=== PATIENT | female | born 1970 | race Caucasian/White ===

== ENCOUNTER 2018-11-09 13:09 | Emergency (ER) | payer MEDICARE, SELFPAY ==
[2018-11-09 13:19] VITALS: BP 123/77; PULSE 98; RESP 18; TEMP 36.7; O2SAT 99; BMI 30.7
--- NOTE | 2018-11-09 13:30 | ED.FEMALEGU ---
HPI - Female Genitourinary <Valarie Winslow PA-C - Last Filed: 11/09/18 19:31> General Chief complaint: Urogenital-Female Stated complaint: lower back pain/hematuria/urgency Time Seen by Provider: 11/09/18 13:30 Source: patient Mode of arrival: ambulatory Limitations: no limitations History of Present Illness HPI Narrative: This 47-year-old female comes to ED due to left flank pain and suspicion of recurrent kidney stone. She has had these multiple times in the past, twice requiring surgical extraction. She states that this severe pain started today, which she describes as ?waves of agony? that radiate from the flank down into the groin and urethra. She states that pain does ease up in between episodes. She states that she has an stream dysuria and hematuria today. No frequency or urgency. She denies any new fever. She denies any vomiting, states she has some nausea with pain waves. She denies any other new symptoms such as rash, chest pain, dyspnea. She has chronic back pain that is unchanged. She states that she has had some urinary discomfort for the last 2 or 3 weeks with some mild hematuria but worse today. Related Data Home Medications Medication Instructions Recorded Confirmed levothyroxine [Levoxyl] #0 12/17/15 metoprolol tartrate #0 12/17/15 Previous Rx's Medication Instructions Recorded hydrocodone-acetaminophen 0 tab PO Q6HP PRN #15 tab 12/17/15 ibuprofen 600 mg PO Q8HP PRN #20 tab 12/17/15 ondansetron [Zofran ODT] 4 mg SUBLINGUAL Q6HP PRN #20 odt 12/17/15 ciprofloxacin HCl [Cipro] 500 mg PO Q12H #14 tab 11/09/18 ondansetron 4 mg PO TID PRN #8 tab 11/09/18 oxycodone-acetaminophen 1 tab PO Q4H PRN #12 tab 11/09/18 tamsulosin [Flomax] 0.4 mg PO DAILY #5 cap 11/09/18 Allergies Allergy/AdvReac Type Severity Reaction Status Date / Time No Known Drug Allergies Allergy Verified 11/09/18 13:51 Review of Systems <Valarie Winslow PA-C - Last Filed: 11/09/18 19:31> Review of Systems ROS Unobtainable: All systems reviewed & are unremarkable except as noted in HPI and below PFSH <Valarie Winslow PA-C - Last Filed: 11/09/18 19:31> Medical History (Updated 11/09/18 @ 16:21 by Valarie Winslow PA-C) History of kidney stones (Resolved) Hypothyroidism (Chronic) Chronic back pain (Chronic) HTN (hypertension) (Chronic) Surgical History (Updated 11/09/18 @ 13:45 by Valarie Winslow PA-C) Status post knee surgery (Resolved) History of extraction of renal calculus (Resolved) Status post appendectomy (Resolved) Status post hysterectomy (Resolved) Social History Smoking Status: Current every day smoker Social History Smoking Status: Current every day smoker Exam <Valarie Winslow PA-C - Last Filed: 11/09/18 19:31> Narrative Exam Narrative: GENERAL APPEARANCE: Patient sitting, appears uncomfortable intermittently, in NAD LUNGS: Clear to auscultation bilaterally. HEART: Rate and rhythm regular without murmur, normal S1 and S2, no S3 or S4. ABDOMEN: Soft, ND, +BS x 4 quadrants, moderate left CVAT, and left suprapubic pain, no tenderness elsewhere, no palpable masses DERMATOLOGIC: No exanthem NEUROLOGIC: Alert, oriented, normal speech and coordination EXTREMITIES: No edema Initial Vital Signs Initial Vital Signs: Vital Signs Temperature 98.0 F 11/09/18 13:19 Pulse Rate 98 H 11/09/18 13:19 Respiratory Rate 18 11/09/18 13:19 Blood Pressure 123/77 11/09/18 13:19 Pulse Oximetry 99 11/09/18 13:19 <Cecilia Perez DO - Last Filed: 11/12/18 09:05> Initial Vital Signs Initial Vital Signs: Vital Signs Temperature 98.0 F 11/09/18 13:19 Pulse Rate 98 H 11/09/18 13:19 Respiratory Rate 18 11/09/18 13:19 Blood Pressure 123/77 11/09/18 13:19 Pulse Oximetry 99 11/09/18 13:19 Course <Valarie Winslow PA-C - Last Filed: 11/09/18 19:31> Additional Information: Patient thought symptoms were same as her previous kidney stones. She is tolerating oral medication, feeling better after medications here. She does think she will be able to manage treatment at home. She has had some ongoing urinary symptoms, will treat for UTI versus pyelo as well as stone. She did have a new sexual partner after onset of symptoms and she elected to pursue STD testing with her PCP at follow-up. She agreed to return if any acutely worsening symptoms in the interim or not able to tolerate oral medications. Orders Ordered: Discontinued Medications Ketorolac Tromethamine (Toradol) 30 mg IV NOW ONE Stop: 11/09/18 13:41 Last Admin: 11/09/18 13:52 Dose: 30 mg Ondansetron HCl (Zofran) 4 mg IV NOW ONE Stop: 11/09/18 13:41 Last Admin: 11/09/18 13:52 Dose: 4 mg Oxycodone/Acetaminophen (Percocet 5/325) 2 tab PO NOW ONE Stop: 11/09/18 15:17 Last Admin: 11/09/18 15:22 Dose: 2 tab Vital Signs - 8 hr 11/09/18 13:19 11/09/18 14:30 11/09/18 15:25 Temperature 98.0 F Pulse Rate 98 H 95 H 62 Respiratory Rate 18 15 Blood Pressure 123/77 Blood Pressure [Left Arm] 118/76 106/67 Pulse Oximetry 99 94 98 11/09/18 16:29 Temperature Pulse Rate 77 Respiratory Rate 16 Blood Pressure 144/70 H Blood Pressure [Left Arm] Pulse Oximetry 93 <Cecilia Perez DO - Last Filed: 11/12/18 09:05> Orders Ordered: Discontinued Medications Ketorolac Tromethamine (Toradol) 30 mg IV NOW ONE Stop: 11/09/18 13:41 Last Admin: 11/09/18 13:52 Dose: 30 mg Ondansetron HCl (Zofran) 4 mg IV NOW ONE Stop: 11/09/18 13:41 Last Admin: 11/09/18 13:52 Dose: 4 mg Oxycodone/Acetaminophen (Percocet 5/325) 2 tab PO NOW ONE Stop: 11/09/18 15:17 Last Admin: 11/09/18 15:22 Dose: 2 tab Vital Signs - 8 hr 11/09/18 13:19 11/09/18 14:30 11/09/18 15:25 Temperature 98.0 F Pulse Rate 98 H 95 H 62 Respiratory Rate 18 15 Blood Pressure 123/77 Blood Pressure [Left Arm] 118/76 106/67 Pulse Oximetry 99 94 98 11/09/18 16:29 Temperature Pulse Rate 77 Respiratory Rate 16 Blood Pressure 144/70 H Blood Pressure [Left Arm] Pulse Oximetry 93 MDM - Female Genitourinary <Valarie Winslow PA-C - Last Filed: 11/09/18 19:31> Lab Data Result diagrams: 11/09/18 13:45 11/09/18 13:45 Lab Results 11/09/18 11/09/18 11/09/18 Range/Units 13:20 13:45 13:45 WBC 14.6 H (4.5-11.0) X10^3/uL RBC 4.26 (4.0-5.2) X10^6/uL Hgb 12.9 (12.0-16.0) g/dL Hct 38.4 (36-46) % MCV 90.0 (80-100) fL MCH 30.2 (26-34) PG MCHC 33.6 (30-36) % RDW 13.8 (11.6-14.8) % Plt Count 358 (150-400) X10^3/uL Neut % (Auto) 71.7 (50-75) % Lymph % (Auto) 18.9 L (25-40) % [place] % (Auto) 6.2 (3-14) % Eos % (Auto) 1.9 L (2-4) % Baso % (Auto) 1.3 (0-2) % Neut # (Auto) 19524 H (7291-2409) /uL Lymph # (Auto) 2800 (6384-6025) /uL [place] # (Auto) 900 (0-900) /uL Eos # (Auto) 300 (0-450) /uL Baso # (Auto) 200 H (0-100) /uL Sodium 139 (137-145) mmol/L Potassium 3.7 (3.4-5.1) mmol/L Chloride 104 (98-107) mmol/L Carbon Dioxide 28 (22-32) mmol/L BUN 14 (7-17) mg/dL Creatinine 0.80 (0.52-1.04) mg/dL Estimated GFR > 60.0 (>60) mL/min BUN/Creatinine Ratio 17.5 (6-22) Glucose 105 H (70-100) mg/dL Calcium 9.4 (8.4-10.2) mg/dL Total Bilirubin 0.4 (0.2-1.3) mg/dL AST 72 H (14-36) IU/L ALT 146 H (9-52) IU/L Alkaline Phosphatase 140 H (38-126) U/L Total Protein 7.0 (6.3-8.2) g/dL Albumin 4.0 (3.5-5.0) g/dL Globulin 3.0 (1.7-4.1) g/dL Albumin/Globulin Ratio 1.3 (1.0-2.8) Urine RBC 5-10/hpf H (0-5/HPF) Urine WBC 30-100/hpf H (0-5/HPF) Ur Squamous Epith Cells 0-1 /hpf (0-5/HPF) Urine Bacteria Few (2-10) H (None) Ur Culture Indicated? Specimen cultured Ur Chlamydia DNA (PCR) N gonorrhoeae DNA (PCR) 11/09/18 Range/Units 15:45 WBC (4.5-11.0) X10^3/uL RBC (4.0-5.2) X10^6/uL Hgb (12.0-16.0) g/dL Hct (36-46) % MCV (80-100) fL MCH (26-34) PG MCHC (30-36) % RDW (11.6-14.8) % Plt Count (150-400) X10^3/uL Neut % (Auto) (50-75) % Lymph % (Auto) (25-40) % [place] % (Auto) (3-14) % Eos % (Auto) (2-4) % Baso % (Auto) (0-2) % Neut # (Auto) (1731-8123) /uL Lymph # (Auto) (0691-3697) /uL [place] # (Auto) (0-900) /uL Eos # (Auto) (0-450) /uL Baso # (Auto) (0-100) /uL Sodium (137-145) mmol/L Potassium (3.4-5.1) mmol/L Chloride (98-107) mmol/L Carbon Dioxide (22-32) mmol/L BUN (7-17) mg/dL Creatinine (0.52-1.04) mg/dL Estimated GFR (>60) mL/min BUN/Creatinine Ratio (6-22) Glucose (70-100) mg/dL Calcium (8.4-10.2) mg/dL Total Bilirubin (0.2-1.3) mg/dL AST (14-36) IU/L ALT (9-52) IU/L Alkaline Phosphatase (38-126) U/L Total Protein (6.3-8.2) g/dL Albumin (3.5-5.0) g/dL Globulin (1.7-4.1) g/dL Albumin/Globulin Ratio (1.0-2.8) Urine RBC (0-5/HPF) Urine WBC (0-5/HPF) Ur Squamous Epith Cells (0-5/HPF) Urine Bacteria (None) Ur Culture Indicated? Ur Chlamydia DNA (PCR) Not detected N gonorrhoeae DNA (PCR) Not detected Urine Dip Bedside Urine Glucose Negative Bedside Urine Bilirubin + 1 Bedside Urine Ketone +/- 5 Urine Specific [place] 1.020 Bedside Urine Occult Blood ++ Bedside Urine pH 6.0 Bedside Urine Protein ++ 100 Bedside Urine Urobilinogen - Negative Bedside Urine Nitrite - Negative Bedside Urine Leukocytes ++ 125 Esterase <Cecilia Perez, DO - Last Filed: 11/12/18 09:05> Lab Data Lab Results 11/09/18 11/09/18 11/09/18 Range/Units 13:20 13:45 13:45 WBC 14.6 H (4.5-11.0) X10^3/uL RBC 4.26 (4.0-5.2) X10^6/uL Hgb 12.9 (12.0-16.0) g/dL Hct 38.4 (36-46) % MCV 90.0 (80-100) fL MCH 30.2 (26-34) PG MCHC 33.6 (30-36) % RDW 13.8 (11.6-14.8) % Plt Count 358 (150-400) X10^3/uL Neut % (Auto) 71.7 (50-75) % Lymph % (Auto) 18.9 L (25-40) % [place] % (Auto) 6.2 (3-14) % Eos % (Auto) 1.9 L (2-4) % Baso % (Auto) 1.3 (0-2) % Neut # (Auto) 34091 H (6511-8343) /uL Lymph # (Auto) 2800 (7084-7431) /uL [place] # (Auto) 900 (0-900) /uL Eos # (Auto) 300 (0-450) /uL Baso # (Auto) 200 H (0-100) /uL Sodium 139 (137-145) mmol/L Potassium 3.7 (3.4-5.1) mmol/L Chloride 104 (98-107) mmol/L Carbon Dioxide 28 (22-32) mmol/L BUN 14 (7-17) mg/dL Creatinine 0.80 (0.52-1.04) mg/dL Estimated GFR > 60.0 (>60) mL/min BUN/Creatinine Ratio 17.5 (6-22) Glucose 105 H (70-100) mg/dL Calcium 9.4 (8.4-10.2) mg/dL Total Bilirubin 0.4 (0.2-1.3) mg/dL AST 72 H (14-36) IU/L ALT 146 H (9-52) IU/L Alkaline Phosphatase 140 H (38-126) U/L Total Protein 7.0 (6.3-8.2) g/dL Albumin 4.0 (3.5-5.0) g/dL Globulin 3.0 (1.7-4.1) g/dL Albumin/Globulin Ratio 1.3 (1.0-2.8) Urine RBC 5-10/hpf H (0-5/HPF) Urine WBC 30-100/hpf H (0-5/HPF) Ur Squamous Epith Cells 0-1 /hpf (0-5/HPF) Urine Bacteria Few (2-10) H (None) Ur Culture Indicated? Specimen cultured Ur Chlamydia DNA (PCR) N gonorrhoeae DNA (PCR) 11/09/18 Range/Units 15:45 WBC (4.5-11.0) X10^3/uL RBC (4.0-5.2) X10^6/uL Hgb (12.0-16.0) g/dL Hct (36-46) % MCV (80-100) fL MCH (26-34) PG MCHC (30-36) % RDW (11.6-14.8) % Plt Count (150-400) X10^3/uL Neut % (Auto) (50-75) % Lymph % (Auto) (25-40) % [place] % (Auto) (3-14) % Eos % (Auto) (2-4) % Baso % (Auto) (0-2) % Neut # (Auto) (3868-8916) /uL Lymph # (Auto) (1482-6131) /uL [place] # (Auto) (0-900) /uL Eos # (Auto) (0-450) /uL Baso # (Auto) (0-100) /uL Sodium (137-145) mmol/L Potassium (3.4-5.1) mmol/L Chloride (98-107) mmol/L Carbon Dioxide (22-32) mmol/L BUN (7-17) mg/dL Creatinine (0.52-1.04) mg/dL Estimated GFR (>60) mL/min BUN/Creatinine Ratio (6-22) Glucose (70-100) mg/dL Calcium (8.4-10.2) mg/dL Total Bilirubin (0.2-1.3) mg/dL AST (14-36) IU/L ALT (9-52) IU/L Alkaline Phosphatase (38-126) U/L Total Protein (6.3-8.2) g/dL Albumin (3.5-5.0) g/dL Globulin (1.7-4.1) g/dL Albumin/Globulin Ratio (1.0-2.8) Urine RBC (0-5/HPF) Urine WBC (0-5/HPF) Ur Squamous Epith Cells (0-5/HPF) Urine Bacteria (None) Ur Culture Indicated? Ur Chlamydia DNA (PCR) Not detected N gonorrhoeae DNA (PCR) Not detected Urine Dip Bedside Urine Glucose Negative Bedside Urine Bilirubin + 1 Bedside Urine Ketone +/- 5 Urine Specific [place] 1.020 Bedside Urine Occult Blood ++ Bedside Urine pH 6.0 Bedside Urine Protein ++ 100 Bedside Urine Urobilinogen - Negative Bedside Urine Nitrite - Negative Bedside Urine Leukocytes ++ 125 Esterase Discharge Plan Departure Patient Disposition: Home Clinical Impression: Kidney stone on right side Urinary tract infection Qualifiers: Urinary tract infection type: site unspecified Hematuria presence: with hematuria Qualified Code(s): N39.0 - Urinary tract infection, site not specified Discharge Date/Time: 11/09/18 16:30 Interventions: ED Discharge Assessment Last Done: 11/09/18 16:29 Instructions: DI for Kidney Stones, DI for Urinary Tract Infection (UTI) Activity Restrictions/Additional Instructions: There is a little bit of bacteria in your urine today, in addition to it looking like there is a small stone (not obstructing) on your CT scan, so I have sent in an antibiotic for you to start as well as nausea medicine and Flomax like you have taken before. Have also given you a prescription for some oxycodone/acetaminophen to take as needed for pain. Remember that this can make you sleepy and not to drive. It is not clear whether the infection is in your kidney versus bladder back today so I have given you the higher dose of antibiotic to cover for kidney infection. As we talked about, it is important that you follow-up with your PCP in the next 2-3 days to assess your progress, and determine whether further treatment or referral are needed, and whether you want to test for STDs. You should also return to the ED over the weekend if you have any acutely worsening symptoms, or new symptoms such as fever or protracted vomiting. I have sent your prescriptions to [facility] in [place]. Prescriptions: New ciprofloxacin HCl [Cipro] 500 mg tablet 500 mg PO Q12H Qty: 14 RF: 0 tamsulosin [Flomax] 0.4 mg capsule 0.4 mg PO DAILY Qty: 5 RF: 0 ondansetron 4 mg tablet,disintegrating 4 mg PO TID PRN (Reason: nausea and vomiting) Qty: 8 RF: 0 oxycodone-acetaminophen 5-325 mg tablet 1 tab PO Q4H PRN (Reason: kidney stone pain) Qty: 12 RF: 0 No Action levothyroxine [Levoxyl] 25 mcg tablet Qty: 0 RF: 0 metoprolol tartrate 25 mg tablet Qty: 0 RF: 0 hydrocodone-acetaminophen 5 MG/325 MG tablet PO Q6HP PRNQty: 15 RF: 0 ibuprofen 600 MG tablet 600 mg PO Q8HP PRNQty: 20 RF: 0 ondansetron [Zofran ODT] 4 MG tablet,disintegrating 4 mg Sublingual Q6HP PRNQty: 20 RF: 0 Referrals: Edward HARTLEY [Other] <Cecilia Perez DO - Last Filed: 11/12/18 09:05> Cosign ED Attending Cosignature Attestation: I was immediately available in the department for consultation. This documentation has been reviewed and I agree with assessment and plan. Supervised by Cecilia Perez DO
--- NOTE | 2018-11-09 13:40 | DI.CT.S_ITS ---
PROCEDURE: CT KIDNEY URETER BLADDER (KUB) INDICATIONS: L. flank/groin pain, h/o obstr. stones TECHNIQUE: Noncontrast 5 mm thick sections acquired from the diaphragms to the symphysis. 5 mm thick coronal and sagittal reformats were then performed. For radiation dose reduction, the following was used: automated exposure control, adjustment of mA and/or kV according to patient size. COMPARISON: [facility], CT, KIDNEY/ URETER/BLADDER, 12/17/2015, 14:23. FINDINGS: Image quality: Excellent. Lung bases: Lung bases are clear. Heart size is normal. Urinary system: Both kidneys are normal in size. Subtle hyperdensity within the upper pole the right kidney may represent a nonobstructing calculus. No hydronephrosis or perinephric fat stranding. Both ureters appear non-dilated throughout their expected courses. Bladder wall thickness is normal; no calcified bladder stones. Other solid organs: Liver is normal in size. Gallbladder is surgically absent. Pancreas is normal in contours. Spleen is normal in size. No adrenal nodules. Peritoneum and bowel: Unenhanced bowel loops demonstrate normal wall thickness and caliber. The appendix is not visualized; however there is no discrete right lower quadrant fluid or fat stranding to suggest acute appendicitis. No free fluid or air. Nodes and vessels: No retroperitoneal or mesenteric adenopathy by size criteria. Aorta and inferior vena cava are normal in caliber. There are scattered atheromatous calcifications throughout the aorta and iliac arteries bilaterally. Abdominal wall: No ventral hernias. The uterus and ovaries are nonvisualized and may be surgically absent. Pelvis: No free pelvic fluid. No inguinal hernias or adenopathy. Bones: No suspicious bony lesions. No vertebral body compression fractures. IMPRESSION: 1. Nonobstructing right nephrolithiasis. No hydronephrosis, hydroureter, or ureterolithiasis. 2. No acute intra-abdominal findings. The appendix is not visualized; however there are no ancillary findings to suggest acute appendicitis. Dictated by: Kari Barba M.D. on 11/09/2018 at 14:03 Approved by: Kari Braba M.D. on 11/09/2018 at 14:09
[2018-11-09 13:45] LABS: Bacteria Urine Few (2-10); Culture Indicated Urine Specimen Cultured; RBC Urine 5-10/HPF (0-5/HPF); Squamous Epithelial Cell Urine 0-1 /HPF (0-5/HPF); WBC Urine 30-100/HPF (0-5/HPF)
--- NOTE | 2018-11-09 13:46 | ED_ITS ---
HPI - Female Genitourinary <Valarie Winslow PA-C - Last Filed: 11/09/18 19:31> General Chief complaint: Urogenital-Female Stated complaint: lower back pain/hematuria/urgency Time Seen by Provider: 11/09/18 13:30 Source: patient Mode of arrival: ambulatory Limitations: no limitations History of Present Illness HPI Narrative: This 47-year-old female comes to ED due to left flank pain and piedra spicion of recurrent kidney stone. She has had these multiple times in the past, twice requiring surgical extraction. She states that this severe pain started today, which she describes as ?waves of agony? that radiate from the flank down into the groin and urethra. She states that pain does ease up in between episodes. She states that she has an stream dysuria and hematuria today. No frequency or urgency. She denies any new fever. She denies any vomiting, states she has some nausea with pain waves. She denies any other new symptoms such as rash, chest pain, dyspnea. She has chronic back pain that is unchanged. She states that she has had some urinary discomfort for the last 2 or 3 weeks with some mild hematuria but worse today. Related Data Home Medications Medication Instructions Recorded Confirmed levothyroxine [Levoxyl] #0 12/17/15 metoprolol tartrate #0 12/17/15 Previous Rx's Medication Instructions Recorded hydrocodone-acetaminophen 0 tab PO Q6HP PRN #15 tab 12/17/15 ibuprofen 600 mg PO Q8HP PRN #20 tab 12/17/15 ondansetron [Zofran ODT] 4 mg SUBLINGUAL Q6HP PRN #20 odt 12/17/15 ciprofloxacin HCl [Cipro] 500 mg PO Q12H #14 tab 11/09/18 ondansetron 4 mg PO TID PRN #8 tab 11/09/18 oxycodone-acetaminophen 1 tab PO Q4H PRN #12 tab 11/09/18 tamsulosin [Flomax] 0.4 mg PO DAILY #5 cap 11/09/18 Allergies Allergy/AdvReac Type Severity Reaction Status Date / Time No Known Drug Allergies Allergy Verified 11/09/18 13:51 Review of Systems <Valarie Winslow PA-C - Last Filed: 11/09/18 19:31> Review of Systems ROS Unobtainable: All systems reviewed & are unremarkable except as noted in HPI and below PFSH <Valarie Winslow PA-C - Last Filed: 11/09/18 19:31> Medical History (Updated 11/09/18 @ 16:21 by Valarie Winslow PA-C) History of kidney stones (Resolved) Hypothyroidism (Chronic) Chronic back pain (Chronic) HTN (hypertension) (Chronic) Surgical History (Updated 11/09/18 @ 13:45 by Valarie Winslow PA-C) Status post knee surgery (Resolved) History of extraction of renal calculus (Resolved) Status post appendectomy (Resolved) Status post hysterectomy (Resolved) Social History Smoking Status: Current every day smoker Social History Smoking Status: Current every day smoker Exam <Valarie Winslow PA-C - Last Filed: 11/09/18 19:31> Narrative Exam Narrative: GENERAL APPEARANCE: Patient sitting, appears uncomfortable intermittently, in NAD LUNGS: Clear to auscultation bilaterally. HEART: Rate and rhythm regular without murmur, normal S1 and S2, no S3 or S4. ABDOMEN: Soft, ND, +BS x 4 quadrants, moderate left CVAT, and left suprapubic pain, no tenderness elsewhere, no palpable masses DERMATOLOGIC: No exanthem NEUROLOGIC: Alert, oriented, normal speech and coordination EXTREMITIES: No edema Initial Vital Signs Initial Vital Signs: Vital Signs Temperature 98.0 F 11/09/18 13:19 Pulse Rate 98 H 11/09/18 13:19 Respiratory Rate 18 11/09/18 13:19 Blood Pressure 123/77 11/09/18 13:19 Pulse Oximetry 99 11/09/18 13:19 <Cecilia Perez DO - Last Filed: 11/12/18 09:05> Initial Vital Signs Initial Vital Signs: Vital Signs Temperature 98.0 F 11/09/18 13:19 Pulse Rate 98 H 11/09/18 13:19 Respiratory Rate 18 11/09/18 13:19 Blood Pressure 123/77 11/09/18 13:19 Pulse Oximetry 99 11/09/18 13:19 Course <Valarie Winslow PA-C - Last Filed: 11/09/18 19:31> Additional Information: Patient thought symptoms were same as her previous kidney stones. She is tolerating oral medication, feeling better after medications here. She does think she will be able to manage treatment at home. She has had some ongoing urinary symptoms, will treat for UTI versus pyelo as well as stone. She did have a new sexual partner after onset of symptoms and she elected to pursue STD testing with her PCP at follow-up. She agreed to return if any acutely worsening symptoms in the interim or not able to tolerate oral medications. Orders Ordered: Discontinued Medications Ketorolac Tromethamine (Toradol) 30 mg IV NOW ONE Stop: 11/09/18 13:41 Last Admin: 11/09/18 13:52 Dose: 30 mg Ondansetron HCl (Zofran) 4 mg IV NOW ONE Stop: 11/09/18 13:41 Last Admin: 11/09/18 13:52 Dose: 4 mg Oxycodone/Acetaminophen (Percocet 5/325) 2 tab PO NOW ONE Stop: 11/09/18 15:17 Last Admin: 11/09/18 15:22 Dose: 2 tab Vital Signs - 8 hr 11/09/18 13:19 11/09/18 14:30 11/09/18 15:25 Temperature 98.0 F Pulse Rate 98 H 95 H 62 Respiratory Rate 18 15 Blood Pressure 123/77 Blood Pressure [Left Arm] 118/76 106/67 Pulse Oximetry 99 94 98 11/09/18 16:29 Temperature Pulse Rate 77 Respiratory Rate 16 Blood Pressure 144/70 H Blood Pressure [Left Arm] Pulse Oximetry 93 <Cecilia Perez DO - Last Filed: 11/12/18 09:05> Orders Ordered: Discontinued Medications Ketorolac Tromethamine (Toradol) 30 mg IV NOW ONE Stop: 11/09/18 13:41 Last Admin: 11/09/18 13:52 Dose: 30 mg Ondansetron HCl (Zofran) 4 mg IV NOW ONE Stop: 11/09/18 13:41 Last Admin: 11/09/18 13:52 Dose: 4 mg Oxycodone/Acetaminophen (Percocet 5/325) 2 tab PO NOW ONE Stop: 11/09/18 15:17 Last Admin: 11/09/18 15:22 Dose: 2 tab Vital Signs - 8 hr 11/09/18 13:19 11/09/18 14:30 11/09/18 15:25 Temperature 98.0 F Pulse Rate 98 H 95 H 62 Respiratory Rate 18 15 Blood Pressure 123/77 Blood Pressure [Left Arm] 118/76 106/67 Pulse Oximetry 99 94 98 11/09/18 16:29 Temperature Pulse Rate 77 Respiratory Rate 16 Blood Pressure 144/70 H Blood Pressure [Left Arm] Pulse Oximetry 93 MDM - Female Genitourinary <Valarie Winslow PA-C - Last Filed: 11/09/18 19:31> Lab Data Result diagrams: 11/09/18 13:45 11/09/18 13:45 Lab Results 11/09/18 11/09/18 11/09/18 Range/Units 13:20 13:45 13:45 WBC 14.6 H (4.5-11.0) X10^3/uL RBC 4.26 (4.0-5.2) X10^6/uL Hgb 12.9 (12.0-16.0) g/dL Hct 38.4 (36-46) % MCV 90.0 (80-100) fL MCH 30.2 (26-34) PG MCHC 33.6 (30-36) % RDW 13.8 (11.6-14.8) % Plt Count 358 (150-400) X10^3/uL Neut % (Auto) 71.7 (50-75) % Lymph % (Auto) 18.9 L (25-40) % Meigs % (Auto) 6.2 (3-14) % Eos % (Auto) 1.9 L (2-4) % Baso % (Auto) 1.3 (0-2) % Neut # (Auto) 33896 H (7381-2568) /uL Lymph # (Auto) 2800 (6065-3650) /uL [place] # (Auto) 900 (0-900) /uL Eos # (Auto) 300 (0-450) /uL Baso # (Auto) 200 H (0-100) /uL Sodium 139 (137-145) mmol/L Potassium 3.7 (3.4-5.1) mmol/L Chloride 104 (98-107) mmol/L Carbon Dioxide 28 (22-32) mmol/L BUN 14 (7-17) mg/dL Creatinine 0.80 (0.52-1.04) mg/dL Estimated GFR > 60.0 (>60) mL/min BUN/Creatinine Ratio 17.5 (6-22) Glucose 105 H (70-100) mg/dL Calcium 9.4 (8.4-10.2) mg/dL Total Bilirubin 0.4 (0.2-1.3) mg/dL AST 72 H (14-36) IU/L ALT 146 H (9-52) IU/L Alkaline Phosphatase 140 H (38-126) U/L Total Protein 7.0 (6.3-8.2) g/dL Albumin 4.0 (3.5-5.0) g/dL Globulin 3.0 (1.7-4.1) g/dL Albumin/Globulin Ratio 1.3 (1.0-2.8) Urine RBC 5-10/hpf H (0-5/HPF) Urine WBC 30-100/hpf H (0-5/HPF) Ur Squamous Epith Cells 0-1 /hpf (0-5/HPF) Urine Bacteria Few (2-10) H (None) Ur Culture Indicated? Specimen cultured Ur Chlamydia DNA (PCR) N gonorrhoeae DNA (PCR) 11/09/18 Range/Units 15:45 WBC (4.5-11.0) X10^3/uL RBC (4.0-5.2) X10^6/uL Hgb (12.0-16.0) g/dL Hct (36-46) % MCV (80-100) fL MCH (26-34) PG MCHC (30-36) % RDW (11.6-14.8) % Plt Count (150-400) X10^3/uL Neut % (Auto) (50-75) % Lymph % (Auto) (25-40) % [place] % (Auto) (3-14) % Eos % (Auto) (2-4) % Baso % (Auto) (0-2) % Neut # (Auto) (5702-4088) /uL Lymph # (Auto) (8602-6185) /uL Meigs # (Auto) (0-900) /uL Eos # (Auto) (0-450) /uL Baso # (Auto) (0-100) /uL Sodium (137-145) mmol/L Potassium (3.4-5.1) mmol/L Chloride (98-107) mmol/L Carbon Dioxide (22-32) mmol/L BUN (7-17) mg/dL Creatinine (0.52-1.04) mg/dL Estimated GFR (>60) mL/min BUN/Creatinine Ratio (6-22) Glucose (70-100) mg/dL Calcium (8.4-10.2) mg/dL Total Bilirubin (0.2-1.3) mg/dL AST (14-36) IU/L ALT (9-52) IU/L Alkaline Phosphatase (38-126) U/L Total Protein (6.3-8.2) g/dL Albumin (3.5-5.0) g/dL Globulin (1.7-4.1) g/dL Albumin/Globulin Ratio (1.0-2.8) Urine RBC (0-5/HPF) Urine WBC (0-5/HPF) Ur Squamous Epith Cells (0-5/HPF) Urine Bacteria (None) Ur Culture Indicated? Ur Chlamydia DNA (PCR) Not detected N gonorrhoeae DNA (PCR) Not detected Urine Dip Bedside Urine Glucose Negative Bedside Urine Bilirubin + 1 Bedside Urine Ketone +/- 5 Urine Specific [place] 1.020 Bedside Urine Occult Blood ++ Bedside Urine pH 6.0 Bedside Urine Protein ++ 100 Bedside Urine Urobilinogen - Negative Bedside Urine Nitrite - Negative Bedside Urine Leukocytes ++ 125 Esterase <Cecliia Perez, DO - Last Filed: 11/12/18 09:05> Lab Data Lab Results 11/09/18 11/09/18 11/09/18 Range/Units 13:20 13:45 13:45 WBC 14.6 H (4.5-11.0) X10^3/uL RBC 4.26 (4.0-5.2) X10^6/uL Hgb 12.9 (12.0-16.0) g/dL Hct 38.4 (36-46) % MCV 90.0 (80-100) fL MCH 30.2 (26-34) PG MCHC 33.6 (30-36) % RDW 13.8 (11.6-14.8) % Plt Count 358 (150-400) X10^3/uL Neut % (Auto) 71.7 (50-75) % Lymph % (Auto) 18.9 L (25-40) % [place] % (Auto) 6.2 (3-14) % Eos % (Auto) 1.9 L (2-4) % Baso % (Auto) 1.3 (0-2) % Neut # (Auto) 59552 H (0988-3609) /uL Lymph # (Auto) 2800 (0062-2714) /uL Meigs # (Auto) 900 (0-900) /uL Eos # (Auto) 300 (0-450) /uL Baso # (Auto) 200 H (0-100) /uL Sodium 139 (137-145) mmol/L Potassium 3.7 (3.4-5.1) mmol/L Chloride 104 (98-107) mmol/L Carbon Dioxide 28 (22-32) mmol/L BUN 14 (7-17) mg/dL Creatinine 0.80 (0.52-1.04) mg/dL Estimated GFR > 60.0 (>60) mL/min BUN/Creatinine Ratio 17.5 (6-22) Glucose 105 H (70-100) mg/dL Calcium 9.4 (8.4-10.2) mg/dL Total Bilirubin 0.4 (0.2-1.3) mg/dL AST 72 H (14-36) IU/L ALT 146 H (9-52) IU/L Alkaline Phosphatase 140 H (38-126) U/L Total Protein 7.0 (6.3-8.2) g/dL Albumin 4.0 (3.5-5.0) g/dL Globulin 3.0 (1.7-4.1) g/dL Albumin/Globulin Ratio 1.3 (1.0-2.8) Urine RBC 5-10/hpf H (0-5/HPF) Urine WBC 30-100/hpf H (0-5/HPF) Ur Squamous Epith Cells 0-1 /hpf (0-5/HPF) Urine Bacteria Few (2-10) H (None) Ur Culture Indicated? Specimen cultured Ur Chlamydia DNA (PCR) N gonorrhoeae DNA (PCR) 11/09/18 Range/Units 15:45 WBC (4.5-11.0) X10^3/uL RBC (4.0-5.2) X10^6/uL Hgb (12.0-16.0) g/dL Hct (36-46) % MCV (80-100) fL MCH (26-34) PG MCHC (30-36) % RDW (11.6-14.8) % Plt Count (150-400) X10^3/uL Neut % (Auto) (50-75) % Lymph % (Auto) (25-40) % [place] % (Auto) (3-14) % Eos % (Auto) (2-4) % Baso % (Auto) (0-2) % Neut # (Auto) (3833-1623) /uL Lymph # (Auto) (6934-2719) /uL Meigs # (Auto) (0-900) /uL Eos # (Auto) (0-450) /uL Baso # (Auto) (0-100) /uL Sodium (137-145) mmol/L Potassium (3.4-5.1) mmol/L Chloride (98-107) mmol/L Carbon Dioxide (22-32) mmol/L BUN (7-17) mg/dL Creatinine (0.52-1.04) mg/dL Estimated GFR (>60) mL/min BUN/Creatinine Ratio (6-22) Glucose (70-100) mg/dL Calcium (8.4-10.2) mg/dL Total Bilirubin (0.2-1.3) mg/dL AST (14-36) IU/L ALT (9-52) IU/L Alkaline Phosphatase (38-126) U/L Total Protein (6.3-8.2) g/dL Albumin (3.5-5.0) g/dL Globulin (1.7-4.1) g/dL Albumin/Globulin Ratio (1.0-2.8) Urine RBC (0-5/HPF) Urine WBC (0-5/HPF) Ur Squamous Epith Cells (0-5/HPF) Urine Bacteria (None) Ur Culture Indicated? Ur Chlamydia DNA (PCR) Not detected N gonorrhoeae DNA (PCR) Not detected Urine Dip Bedside Urine Glucose Negative Bedside Urine Bilirubin + 1 Bedside Urine Ketone +/- 5 Urine Specific [place] 1.020 Bedside Urine Occult Blood ++ Bedside Urine pH 6.0 Bedside Urine Protein ++ 100 Bedside Urine Urobilinogen - Negative Bedside Urine Nitrite - Negative Bedside Urine Leukocytes ++ 125 Esterase Discharge Plan Departure Patient Disposition: Home Clinical Impression: Kidney stone on right side Urinary tract infection Qualifiers: Urinary tract infection type: site unspecified Hematuria presence: with hematuria Qualified Code(s): N39.0 - Urinary tract infection, site not specified Discharge Date/Time: 11/09/18 16:30 Interventions: ED Discharge Assessment Last Done: 11/09/18 16:29 Instructions: DI for Kidney Stones, DI for Urinary Tract Infection (UTI) Activity Restrictions/Additional Instructions: There is a little bit of bacteria in your urine today, in addition to it looking like there is a small stone (not obstructing) on your CT scan, so I have sent in an antibiotic for you to start as well as nausea medicine and Flomax like you have taken before. Have also given you a prescription for some oxycodone/acetaminophen to take as needed for pain. Remember that this can make you sleepy and not to drive. It is not clear whether the infection is in your kidney versus bladder back today so I have given you the higher dose of antibiotic to cover for kidney infection. As we talked about, it is important that you follow-up with your PCP in the next 2-3 days to assess your progress, and determine whether further treatment or referral are needed, and whether you want to test for STDs. You should also return to the ED over the weekend if you have any acutely worsening symptoms, or new symptoms such as fever or protracted vomiting. I have sent your prescriptions to [facility] in [place]. Prescriptions: New ciprofloxacin HCl [Cipro] 500 mg tablet 500 mg PO Q12H Qty: 14 RF: 0 tamsulosin [Flomax] 0.4 mg capsule 0.4 mg PO DAILY Qty: 5 RF: 0 ondansetron 4 mg tablet,disintegrating 4 mg PO TID PRN (Reason: nausea and vomiting) Qty: 8 RF: 0 oxycodone-acetaminophen 5-325 mg tablet 1 tab PO Q4H PRN (Reason: kidney stone pain) Qty: 12 RF: 0 No Action levothyroxine [Levoxyl] 25 mcg tablet Qty: 0 RF: 0 metoprolol tartrate 25 mg tablet Qty: 0 RF: 0 hydrocodone-acetaminophen 5 MG/325 MG tablet PO Q6HP PRNQty: 15 RF: 0 ibuprofen 600 MG tablet 600 mg PO Q8HP PRNQty: 20 RF: 0 ondansetron [Zofran ODT] 4 MG tablet,disintegrating 4 mg Sublingual Q6HP PRNQty: 20 RF: 0 Referrals: Edward HARTLEY [Other] <Cecilia Perez DO - Last Filed: 11/12/18 09:05> Cosign ED Attending Cosignature Attestation: I was immediately available in the department for consultation. This documentation has been reviewed and I agree with assessment and plan. Supervised by Cecilia Perez DO
[2018-11-09] MEDS: KETOROLAC 60 MG/2 ML VIAL 30 MG IV (13:52)
[2018-11-09] MEDS: ONDANSETRON 4 MG/2 ML INJ IV (13:52)
[2018-11-09 14:00] LABS: Add Manual Diff / Slide Review NO; Basophils Absolute Auto 200 /uL (0-100); Basophils Percent Auto 1.3 % (0-2); Eosinophils Absolute Auto 300 /uL (0-450); Eosinophils Percent Auto 1.9 % (2-4); Hematocrit 38.4 % (36-46); Hemoglobin 12.9 g/dL (12.0-16.0); Lymphocytes Absolute Auto 2800 /uL (1100-4500); Lymphocytes Percent Auto 18.9 % (25-40); Mean Corpuscular HGB Conc 33.6 % (30-36); Mean Corpuscular Hemoglobin 30.2 PG (26-34); Monocytes Absolute Auto 900 /uL (0-900); Monocytes Percent Auto 6.2 % (3-14); Neutrophils Absolute Auto 10500 /uL (1500-7000); Neutrophils Percent Auto 71.7 % (50-75); Platelet Count 358 X10^3/uL (150-400); Red Blood Cell Count 4.26 X10^6/uL (4.0-5.2); Red Cell Distribution Width 13.8 % (11.6-14.8); White Blood Cell Count 14.6 X10^3/uL (4.5-11.0)
[2018-11-09 14:12] LABS: Alanine Aminotransferase 146 IU/L (9-52); Albumin Globulin Ratio 1.3 (1.0-2.8); Alkaline Phosphatase 140 U/L (38-126); Aspartate Aminotransferase 72 IU/L (14-36); BUN Creatinine Ratio 17.5 (6-22); Bilirubin Total 0.4 mg/dL (0.2-1.3); Blood Urea Nitrogen 14 mg/dL (7-17); Calcium 9.4 mg/dL (8.4-10.2); Carbon Dioxide 28 mmol/L (22-32); Chloride 104 mmol/L (98-107); Estimated Glomerular Filt Rate > 60.0 mL/min (>60); Glucose 105 mg/dL (70-100); HEMOLYSIS 23 (0-50); Potassium 3.7 mmol/L (3.4-5.1); Sodium 139 mmol/L (137-145)
[2018-11-09 14:30] VITALS: BP 118/76; PULSE 95; O2SAT 94
[2018-11-09] MEDS: OXYCODONE/ACETAMINOPHEN 5/325 TABLET 2 TAB PO (15:22)
[2018-11-09 15:25] VITALS: BP 106/67; PULSE 62; RESP 15; O2SAT 98
[2018-11-09 16:29] VITALS: BP 144/70; PULSE 77; RESP 16; O2SAT 93
[2018-11-09 17:21] LABS: Urine N gonorrhoeae NOT DETECTED
[2018-11-09 17:32] LABS: Urine Chlamydia NOT DETECTED
== END 2018-11-09 16:30 | disposition home or self-care (01) ==
PROVIDERS: Emergency Medicine; Emergency Provider Internal Medicine
DX: N20.0 Calculus of kidney (principal); N39.0 Urinary tract infection, site not specified
CPT/HCPCS: 36591; 74176; 80053; 81003; 81015; 85025; 87077; 87086; 87186; 87491; 87591; 96374; 96375; 99283; 99284; J1885; J2405

== ENCOUNTER 2018-12-10 05:42 | Emergency (ER) | payer MEDICARE, SELFPAY ==
[2018-12-10 05:50] VITALS: BP 130/88; PULSE 101; RESP 18; TEMP 36.6; O2SAT 99; BMI 30.7
--- NOTE | 2018-12-10 06:08 | ED.SKABFB ---
HPI - Skin/Abscess/Foreign Bdy General Chief complaint: Skin/Abscess/Foreign Body Stated complaint: bump on head painful Time Seen by Provider: 12/10/18 05:45 Source: patient Mode of arrival: ambulatory Limitations: no limitations History of Present Illness HPI narrative: 48-year-old female smoker with history of skin infections presents to the emergency department with a chief complaint of a painful bump on the right side of her posterior scalp with some foul-smelling purulence drainage for the past few days and now some right-sided posterior neck pain and swollen ?bumps?. She has had no fever chills nor nausea or vomiting. She denies any injury. complaint: abscess/boil Onset (ago): day(s) Tetanus up to date: yes Location: head Severity: moderate Quality: aching Pain Consistency: constant Relieving factors: none Exacerbating factors: none Associated symptoms: denies other symptoms Treatments prior to arrival: none Related Data Home Medications Medication Instructions Recorded Confirmed levothyroxine [Levoxyl] #0 12/17/15 metoprolol tartrate #0 12/17/15 Previous Rx's Medication Instructions Recorded hydrocodone-acetaminophen 0 tab PO Q6HP PRN #15 tab 12/17/15 ibuprofen 600 mg PO Q8HP PRN #20 tab 12/17/15 ondansetron [Zofran ODT] 4 mg SUBLINGUAL Q6HP PRN #20 odt 12/17/15 ciprofloxacin HCl [Cipro] 500 mg PO Q12H #14 tab 11/09/18 ondansetron 4 mg PO TID PRN #8 tab 11/09/18 oxycodone-acetaminophen 1 tab PO Q4H PRN #12 tab 11/09/18 tamsulosin [Flomax] 0.4 mg PO DAILY #5 cap 11/09/18 doxycycline monohydrate 100 mg PO BID 10 Days #20 cap 12/10/18 Allergies Allergy/AdvReac Type Severity Reaction Status Date / Time No Known Drug Allergies Allergy Verified 11/09/18 13:51 Review of Systems Constitutional Denies chills, Denies fever(s), Denies lethargy and Denies weakness Eyes Denies change in vision, Denies eye discharge, Denies irritation and Denies loss of vision ENT Ears, Nose, Mouth, and Throat: Denies change in voice, Denies neck pain and Denies sore throat Cardiovascular Denies chest pain, Denies irregular heart rhythm, Denies lightheadedness, Denies palpitations, Denies dyspnea, Denies dyspnea on exertion and Denies orthopnea Respiratory Denies cough, Denies dyspnea, Denies dyspnea on exertion and Denies wheezing Gastrointestinal Gastrointestinal: Denies abdominal pain, Denies change in bowel habits, Denies diarrhea, Denies nausea and Denies vomiting Genitourinary Denies hematuria, Denies flank pain, Denies urinary incontinence and Denies urinary urgency Musculoskeletal Denies neck pain Integumentary/Breasts Denies pruritus, Reports erythema, Denies rash, Reports skin swelling and Reports wounds Neurologic Denies confusion, Denies loss of vision and Denies weakness Psychiatric Denies anxiety, Denies confusion, Denies depression, Denies homicidal ideation and Denies suicidal ideation Endocrine Denies palpitations Hematologic/Lymphatic Denies easy bruising Allergic/Immunologic Denies wheezing PFSH Medical History History of kidney stones (Resolved) Hypothyroidism (Chronic) Chronic back pain (Chronic) HTN (hypertension) (Chronic) Surgical History Status post knee surgery (Resolved) History of extraction of renal calculus (Resolved) Status post appendectomy (Resolved) Status post hysterectomy (Resolved) Social History Smoking Status: Current every day smoker Social History Smoking Status: Current every day smoker Exam Narrative Exam Narrative: GEN: AOx3 and in mild distress HEAD: 2cm indurated lesion on Right Posterior scalp with healing central portion, no fluctuance. NECK: mild R posterior cervical lymphadenopathy EYES: Pupils are equal, round, and reactive to light and accommodation. Extraoccular muscles are intact bilaterally. There is no subconjunctival hemorrhage or exudate. CHEST: Lungs are clear to auscultation bilaterally and free of wheezes, rales, or rhonchi. Heart rate is regular rhythm, there are no murmurs, clicks, rubs, or gallops. There is no chest wall tenderness. ABD: Abdomen is soft and nontender. There is no guarding or rebound. Bowel sounds are normal in all 4 quadrants. There is no mass or organomegaly. EXT: Full painless ROM of all extremities with no loss of sensation or strength. SKIN: Warm, pink, and dry. No erythema or rash Initial Vital Signs Initial Vital Signs: Vital Signs Temperature 97.9 F 12/10/18 05:50 Pulse Rate 101 H 12/10/18 05:50 Respiratory Rate 18 12/10/18 05:50 Blood Pressure 130/88 12/10/18 05:50 Pulse Oximetry 99 12/10/18 05:50 Procedures Abscess I/D Site: scalp Side (if applicable): right Local Anesthetic: lidocaine 1% and with epi Amount of anesthesia used (mL): 3 Technique: needle aspiration and incised with #11 blade Amount of fluid expressed (mL): 1 Irrigation: No Packing used?: none Complications: pain Course Orders Ordered: ED Orders 12/10/18 06:14 Wound Culture and Gram Stain Stat Discontinued Medications Hydrocodone Bitart/Acetaminophen (Vicodin Prepack) 1 bottle MISC SEEINSTR ONE Stop: 12/10/18 06:09 Doxycycline Hyclate (Vibramycin) 100 mg PO NOW ONE Stop: 12/10/18 05:54 Lidocaine/Epinephrine (Xylocaine 1% W/Epi) 1 ml SUBCUT NOW ONE Stop: 12/10/18 05:54 Vital Signs - 8 hr 12/10/18 05:50 Temperature 97.9 F Pulse Rate 101 H Respiratory Rate 18 Blood Pressure 130/88 Pulse Oximetry 99 Discharge Plan Departure Patient Disposition: Home Clinical Impression: Abscess or cellulitis of scalp Instructions: DI for Skin Abscess Activity Restrictions/Additional Instructions: *You have been diagnosed with [scalp abscess with cellulitis *What to do: *Take medications as directed *Follow up with your primary care provider in 2-3 days, call for an appointment. Let them know you were seen in the Emergency Department and that we ask that you be seen in follow up *Return to ER if you should have any new, worsening or concerning symptoms Prescriptions: New doxycycline monohydrate 100 mg capsule 100 mg PO BID 10 Days Qty: 20 RF: 0 No Action levothyroxine [Levoxyl] 25 mcg tablet Qty: 0 RF: 0 metoprolol tartrate 25 mg tablet Qty: 0 RF: 0 hydrocodone-acetaminophen 5 MG/325 MG tablet PO Q6HP PRNQty: 15 RF: 0 ibuprofen 600 MG tablet 600 mg PO Q8HP PRNQty: 20 RF: 0 ondansetron [Zofran ODT] 4 MG tablet,disintegrating 4 mg Sublingual Q6HP PRNQty: 20 RF: 0 ciprofloxacin HCl [Cipro] 500 mg tablet 500 mg PO Q12H Qty: 14 RF: 0 tamsulosin [Flomax] 0.4 mg capsule 0.4 mg PO DAILY Qty: 5 RF: 0 ondansetron 4 mg tablet,disintegrating 4 mg PO TID PRN (Reason: nausea and vomiting) Qty: 8 RF: 0 oxycodone-acetaminophen 5-325 mg tablet 1 tab PO Q4H PRN (Reason: kidney stone pain) Qty: 12 RF: 0
[2018-12-10] MEDS: DOXYCYCLINE HYCLATE 100 MG TABLET PO (06:21)
[2018-12-10] MEDS: LIDOCAINE 1% W/EPI INJ 1 ML SUBCUT (06:21)
[2018-12-10] MEDS: HYDROCODONE/ACET 5/325 PREPACK 1 BOTTLE MISC (06:21)
== END 2018-12-10 06:28 | disposition home or self-care (01) ==
PROVIDERS: Emergency Provider Emergency Medicine
DX: L03.811 Cellulitis of head [any part, except face] (principal); L02.811 Cutaneous abscess of head [any part, except face]
CPT/HCPCS: 10060; 87070; 87077; 87147; 87186; 87205; 99282; 99283

== ENCOUNTER 2022-06-02 21:46 | Emergency (ER) | payer MEDICARE, SELFPAY ==
[2022-06-02] VITALS (8 sets, daily range): BP systolic 119–171; BP diastolic 73–108; PULSE 98–109; RESP 12–24; TEMP 36.6; O2SAT 92–100; BMI 31.4
--- NOTE | 2022-06-02 22:08 | DI.RAD.S_ITS ---
PROCEDURE: XR CHEST 1V INDICATIONS: chest pain TECHNIQUE: One view of the chest was acquired. COMPARISON: None. FINDINGS: Surgical changes and devices: None. Lungs and pleura: Lungs are clear. No pleural effusions or pneumothorax. Mediastinum: Mediastinal contours appear normal. Heart size is normal. Bones and chest wall: No suspicious bony lesions. Overlying soft tissues appear unremarkable. IMPRESSION: 1. No acute cardiopulmonary disease. Dictated by: Angel Rich M.D. on 06/02/2022 at 22:55 Approved by: Angel Rich M.D. on 06/02/2022 at 22:56
[2022-06-02 22:14] LABS: Add Manual Diff / Slide Review NO; Basophils Absolute Auto 100 /uL (0-100); Basophils Percent Auto 0.7 % (0-2); Eosinophils Absolute Auto 300 /uL (0-450); Hematocrit 37.4 % (36-46); Hemoglobin 12.5 g/dL (12.0-16.0); Lymphocytes Absolute Auto 3400 /uL (1100-4500); Mean Corpuscular HGB Conc 33.5 % (30-36); Mean Corpuscular Hemoglobin 29.9 PG (26-34); Mean Corpuscular Volume 89.2 fL (80-100); Monocytes Absolute Auto 1000 /uL (0-900); Monocytes Percent Auto 7.6 % (3-14); Neutrophils Absolute Auto 8200 /uL (1500-7000); Neutrophils Percent Auto 63.7 % (50-75); Platelet Count 394 X10^3/uL (150-400); Red Blood Cell Count 4.19 X10^6/uL (4.0-5.2); Red Cell Distribution Width 13.7 % (11.6-14.8)
[2022-06-02] MEDS: ALBUTEROL/IPRATROPIUM 3 ML AMPUL INH (22:21)
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
[2022-06-02] MEDS: LORazepam 2 MG/ML INJ 0.5 MG IV (22:24)
[2022-06-02] MEDS: ASPIRIN 81 MG CHEW TAB 324 MG PO (22:24)
[2022-06-02 22:25] LABS: Alanine Aminotransferase 94 IU/L (<35); Albumin 4.4 g/dL (3.5-5.0); Albumin Globulin Ratio 1.2 (1.0-2.8); Alkaline Phosphatase 108 U/L (38-126); Aspartate Aminotransferase 86 IU/L (14-36); BUN Creatinine Ratio 19.5 (6-22); Bilirubin Total 0.4 mg/dL (0.2-1.3); Blood Urea Nitrogen 23 mg/dL (7-17); Calcium 9.3 mg/dL (8.4-10.2); Carbon Dioxide 31 mmol/L (22-32); Chloride 99 mmol/L (98-107); Creatine Kinase 400 U/L (30-135); Estimated Glomerular Filt Rate 55 mL/min (>60); Globulin 3.6 g/dL (1.7-4.1); Glucose 79 mg/dL (70-100); HEMOLYSIS < 15 (0-50); Lipase 220 U/L (23-300); Potassium 3.5 mmol/L (3.4-5.1); Sodium 139 mmol/L (137-145)
[2022-06-02 22:37] LABS: NT-proBNP (BNP-Adult 18+) 39 pg/mL (<125); Troponin I 0.029 ng/mL (0.01-0.034)
[2022-06-02 22:40] LABS: CKMB % Relative Index 1.5 % (1.5-5.0); Creatine Kinase MB 6.12 ng/mL (<2.37)
[2022-06-03] VITALS: BP 132/73; PULSE 98; RESP 16; O2SAT 94
[2022-06-03 00:30] VITALS: BP 117/63; PULSE 96; RESP 16; O2SAT 94
[2022-06-03 00:33] LABS: Troponin I 0.035 ng/mL (0.01-0.034)
[2022-06-03 01:00] VITALS: BP 132/82; PULSE 99; RESP 15; O2SAT 96
== END 2022-06-03 01:16 | disposition home or self-care (01) ==
PROVIDERS: Emergency Provider Emergency Medicine
DX: R07.89 Other chest pain (principal); F41.9 Anxiety disorder, unspecified; R06.02 Shortness of breath; I10 Essential (primary) hypertension
CPT/HCPCS: 36415; 71045; 80053; 82550; 82553; 83690; 83880; 84484; 85025; 93005; 94640; 96374; 99284; J2060